=== PATIENT | female | born 1995 | race Caucasian/White ===

== ENCOUNTER 2017-11-23 08:10 | Day surgery (SDC) | payer OTHER ==
--- NOTE | 2017-11-23 08:26 | ED ---
Abdominal Pain/Female - HPI Summary HPI Summary: A 22 y/o F presents to ED with c/o RLQ pain onset this morning. Associated sx: nausea. Denies urinary sx, bowel changes. Aggravating factors: movement. Pt was at baseline yesterday. [facility]: three weeks ago. PMHxL fibromyalgia. No daily meds. - History of Current Complaint Chief Complaint: EDAbdPain Stated Complaint: ABD PAIN Time Seen by Provider: 11/23/17 08:24 Hx Obtained From: Patient Onset/Duration: Sudden Onset, Lasting Hours, Still Present Timing: Constant Severity Currently: Severe Pain Intensity: 10 Pain Scale Used: 0-10 Numeric Location: Discrete At: RLQ Character: Sharp Aggravating Factor(s): Movement Associated Signs and Symptoms: Positive: Nausea. Negative: Constipation, Blood in Stool, Urinary Symptoms, Diarrhea Allergies/Adverse Reactions: Allergies Allergy/AdvReac Type Severity Reaction Status Date / Time nickel Allergy Rash Verified 11/23/17 11:03 Home Medications: Home Medications NK [No Home Medications Reported] 11/23/17 [History Confirmed 11/23/17] PMH/Surg Hx/FS Hx/Imm Hx Previously Healthy: Yes Sensory History: Denies: Hx Deafness Opthamlomology History: Denies: Hx Legally Blind EENT History: Denies: Hx Deafness Infectious Disease History: No Infectious Disease History: Denies: Traveled Outside the [place] in Last 30 Days - Family History Known Family History: Negative: Cardiac Disease, Hypertension, Diabetes - Social History Occupation: Student Lives: Dormitory/Roommates Review of Systems Negative: Fever Positive: Abdominal Pain, Nausea. Negative: Diarrhea Negative: dysuria, hematuria All Other Systems Reviewed And Are Negative: Yes Physical Exam - Summary Physical Exam Summary: Appearance: The patient is well-nourished in no acute distress and in no acute pain. Skin: The skin is warm and dry and skin color reflects adequate perfusion. HEENT: The head is normocephalic and atraumatic. The pupils are equal and reactive. The conjunctivae are clear and without drainage. Nares are patent and without drainage. Mouth reveals moist mucous membranes and the throat is without erythema and exudate. The external ears are intact. The ear canals are patent and without drainage. The tympanic membranes are intact. Neck: the neck is supple with full range of motion and non-tender. There are no carotid bruits. There is no neck vein distension. Respiratory: Chest is non-tender. Lungs are clear to auscultation and breath sounds are symmetrical and equal. Cardiovascular: Heart is regular rate and rhythm. There is no murmur or rub auscultated. There is no peripheral edema and pulses are symmetrical and equal. Abdomen: The abdomen is soft. Pt is tenderly diffuse, worse at McBurney's point. Mild rebound. There are normal bowel sounds heard in all four quadrants and there is no organomegaly palpated. Musculoskeletal: There is no back tenderness noted. Extremities are non-tender with full range of motion. There is good capillary refill. There is no peripheral edema or calf tenderness elicited. Neurological: Patient is alert and oriented to person, place and time. The patient has symmetrical motor strength in all four extremities. Cranial nerves are grossly intact. Deep tendon reflexes are symmetrical and equal in all four extremities. Psychiatric: The patient has an appropriate affect and does not exhibit any anxiety or depression. Triage Information Reviewed: Yes Vital Signs On Initial Exam: Initial Vitals Temp Pulse Resp BP Pulse Ox 98.2 F 62 18 129/90 97 11/23/17 08:13 11/23/17 08:13 11/23/17 08:13 11/23/17 08:13 11/23/17 08:13 Vital Signs Reviewed: Yes Diagnostics - Vital Signs Vital Signs Temp Pulse Resp BP Pulse Ox 11/23/17 08:13 98.2 F 62 18 129/90 97 - Laboratory Result Diagrams: 11/23/17 08:48 11/23/17 08:48 Lab Statement: Any lab studies that have been ordered have been reviewed, and results considered in the medical decision making process. - Ultrasound No standard instances Ultrasound Interpretation: Positive (See Comments) - Appendix U/S IMPRESSION: # . The constellation of findings in the appropriate clinical context is consistent with early appendicitis. Correlate with clinical assessment and consider surgical consultation and potentially contrast-enhanced CT for further assessment if deemed appropriate. #. Results discussed with Dr. Graves 2017 9:27 AM EDT ED provider has reviewed this report. Ultrasound Interpretation Completed By: Radiologist Re-Evaluation - Re-Evaluation 1 Re-Evaluation Time: 09:36 Change: Unchanged Comment: Discussing US reports and plans for Dr. Choe, surgery to see pt in ED. Abdominal Pain Fem Course/Dx - Course Course Of Treatment: Ms. Gandhi presented with one day history of right lower quadrant pain and nausea. She was afebrile and her labs are within normal limits however an ultrasound of her right lower quadrant was interpreted as acute appendicitis by Dr. Paniagua. Dr. Ponce was contacted, evaluated her and took her to the operating room. - Diagnoses Provider Diagnoses: Appendicitis - Provider Notifications Discussed Care Of Patient With: Dimitri Paniagua - Radiology Time Discussed With Above Provider: 09:26 Instructed by Provider To: Other - Pt has acute appendicitis Discharge - Sign-Out/Discharge Documenting (check all that apply): Patient Departure - ADM - OR All imaging exams completed and their final reports reviewed: Yes - Discharge Plan Condition: Stable Disposition: ADMITTED TO [facility] - Billing Disposition and Condition Condition: STABLE Disposition: Admitted to [facility] - Attestation Statements Document Initiated by Scribe: Yes Documenting Scribe: Gena Tamayo Provider For Whom Scribe is Documenting (Include Credential): Dr. Moe Graves MD Scribe Attestation: Gena Wayne scribed for Dr. Moe Graves MD on 11/23/17 at 1142. Scribe Documentation Reviewed: Yes Provider Attestation: The documentation as recorded by the Gena gutiérrez accurately reflects the service I personally performed and the decisions made by , Dr. Moe Graves MD Consult Consult: At 0930: consult with Dr. Choe, surgery MD will see pt in ED
[2017-11-23 09:05] LABS: ABS Basophils 0.1 10^3/ul (0-0.2); ABS Eosinophils 0.2 10^3/ul (0-0.6); ABS Lymphocytes 1.8 10^3/ul (1.0-4.8); ABS Monocytes 0.5 10^3/ul (0-0.8); ABS Neutrophils 3.1 10^3/ul (1.5-7.7); ABS Nucleated RBC 0 10^3/ul; Eosinophil % 3.9 % (0-6); Hematocrit 40 % (35-47); Hemoglobin 13.8 g/dl (12.0-16.0); Lymphocyte % 32.5 % (25-47); Mean Corpuscular HGB Conc 34 g/dl (31-36); Mean Corpuscular Hemoglobin 34 pg (27-31); Mean Corpuscular Volume 100 fL (80-97); Mean Platelet Volume 8.5 um3 (7.4-10.4); Nucleated Red Blood Cells % 0.2; Platelet Count 217 10^3/ul (150-450); Red Blood Count 4.06 10^6/ul (4.00-5.40); Red Cell Distribution Width 12 % (10.5-15); White Blood Count 5.7 10^3/ul (3.5-10.8)
--- NOTE | 2017-11-23 09:31 | RAD ---
INDICATION: RIGHT lower quadrant pain since this morning. COMPARISON: No relevant prior exams available on the [facility] PACS for comparison. TECHNIQUE: Ultrasound of the right lower quadrant. REPORT: Blind-ending tubular structure with gut wall signature is identified at the RIGHT lower quadrant corresponding with the region of pain consistent with the appendix. The appendix measures up to 8 mm maximum diameter with upper normal 3 mm wall thickness. No echogenic shadowing element evident to indicate presence of an appendicolith however the base of the appendix is not definitively visualized limiting assessment. Small volume of pericholecystic fluid present. Negative for gross hyperemia on Doppler. IMPRESSION: #. The constellation of findings in the appropriate clinical context is consistent with early appendicitis. Correlate with clinical assessment and consider surgical consultation and potentially contrast-enhanced CT for further assessment if deemed appropriate. #. Results discussed with Dr. Graves 11/23/2017 9:27 AM EDT
[2017-11-23 09:42] LABS: Urine Appearance Clear; Urine Blood Negative (Negative); Urine Color Straw; Urine Ketones Negative (Negative); Urine Protein Negative (Negative); Urine Specific Gravity 1.004 (1.010-1.030); Urine Urobilinogen Negative (Negative)
--- NOTE | 2017-11-23 13:04 | CONS ---
CC: Dr. Lara * SURGICAL CONSULT NOTE: DATE OF CONSULT: 11/23/17 ATTENDING SURGEON: Dr. Ramón Choe. (DICTATED BY ELIZABETH JOAQUIN) CHIEF COMPLAINT: Right lower quadrant abdominal pain. HISTORY OF PRESENT ILLNESS: This is a 22-year-old female with a history of fibromyalgia, who awoke per her normal routine this morning and noted some right lower quadrant abdominal pain. This quickly became "excruciating" such that she was unable to get out of bed without assistance and felt that she needed to come to the emergency department. She states that the pain has remained in the right lower quadrant and persists to the present time. She has not received any analgesics. She states that the bumps along the road on the way to the hospital did increase her pain. She felt better curled up, though at present time is lying flat on the ED stretcher. She states the pain soon after onset was 10/10 and at present is 8/10. She does have some associated nausea, but thus far has not vomited. No lower GI symptoms. She had a normal bowel movement yesterday. No suspect food ingestion or sick contacts. No recent travel history. No prior history of similar symptoms. She has not had any prior abdominal surgeries. PAST MEDICAL HISTORY: Fibromyalgia. She has seen Dr. Lara locally for evaluation, which was apparently unrevealing. She states that most of the pain she experiences from the fibromyalgia is musculoskeletal and much different than her current presentation. PAST SURGICAL HISTORY: Her only previous surgery is wisdom teeth extraction. MEDICATIONS: Current medications: None. She does take some vitamin C supplement but nothing that sounds significant. ALLERGIES: Medication allergies: None (she does have local contact irritation from [employer]). FAMILY HISTORY: Negative for anesthesia problems, bleeding, or clotting disorders. SOCIAL HISTORY: The patient lives in a house with a number of other students as well as her boyfriend. 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 She drinks less than or equal to 1 drink per week. She smokes marijuana approximately 4 to 6 times a day (in part because of improvement in her fibromyalgia symptoms). She denies any other recreational drug use. REVIEW OF SYSTEMS: General: No recent constitutional symptoms or acute illnesses other than described in the HPI. HEENT: No sore throat, though has had some recent sick contacts with housemates who had strep. Cardiovascular: No history of chest pain, palpitations, or heart murmur. Respiratory: No history of asthma, chronic cough, or shortness of breath. GI: As above per HPI. No additions. : No dysuria, increased frequency, or hematuria. COLLEGE DIRECTOR: Last menstrual period 3 weeks ago. Her hCG is negative. Endocrine: No diabetes or thyroid dysfunction. Remainder of her review of systems is negative. PHYSICAL EXAMINATION: Height 5 feet 4 inches, weight 130 pounds. Temperature 99.4, blood pressure 109/66, pulse 59, respirations 18, room air saturation 98% . General: Well-nourished, well-developed female in no acute distress. She actually appears fairly comfortable lying supine on the stretcher. Skin: Warm and dry. No suspicious rashes or lesions. HEENT: Pupils are equal, round, and reactive. EOMs intact. No conjunctival pallor. Oropharynx: Teeth in good repair. No intraoral lesions. Neck: No lymphadenopathy, thyromegaly, or masses. Heart: Regular rate and rhythm. No murmur noted. Lungs: Clear to auscultation. No wheezes. Breasts: Not examined. Abdomen: Flat, nondistended. Bowel sounds present. Soft with diffuse tenderness, which is maximal at McBurney's point, where there is also some mild guarding and mild rebound. There is also some mild referred tenderness but no other peritoneal signs. No palpable masses. No palpable inguinal hernias. Genitalia and Rectal : Not done. Extremities: No edema. Neurological: Grossly intact. DIAGNOSTIC STUDIES/LAB DATA: Laboratory: Of note, white blood cell count 5700, hemoglobin 13.8. Her chemistries including CRP are all normal. Beta-hCG is negative. Urinalysis is negative. An ultrasound of the right lower quadrant was performed and read as showing an 8 -mm diameter appendix with up to 3-mm wall thickening with an apparent small amount of free fluid, possibly consistent with acute appendicitis. IMPRESSION: Possible early appendicitis. PLAN/RECOMMENDATIONS: The patient's exam to be confirmed by Dr. Choe, at which point, a decision would be made either in the direction of additional imaging and/or operative intervention, i.e., laparoscopic appendectomy. DAI WHITTINGTON, ELIZABETH [id number]/[facility] #: [id number] ELY
[2017-11-23] MEDS ORDERED: Lidocaine 2% PF * 5 ML VIAL ONE (13:30)
[2017-11-23] MEDS ORDERED: fentaNYL* 50 MCG/ML 2 ML VIAL (100 MCG VIAL) ONE ×2 (13:30→15:51)
[2017-11-23] MEDS ORDERED: Ondansetron INJ* 2 MG/ML VIAL ONE (13:30)
[2017-11-23] MEDS ORDERED: Midazolam* 1 MG/ML 5 ML VIAL (5 MG) ONE (13:30)
[2017-11-23] MEDS ORDERED: Propofol* 10 MG/ML 20 ML BTL IV PUSH ONE (13:30)
[2017-11-23] MEDS ORDERED: Dexamethasone IV* 4 MG/ML 1 ML (4 MG) ONE (13:30)
[2017-11-23] MEDS ORDERED: ceFOXitin 2 GM IVPREMIX* 2 GM/50 ML BAG ONE (14:08)
[2017-11-23] MEDS ORDERED: Bupivacaine 0.25% EPI 200,000* 30 ML SDV ONE (14:15)
[2017-11-23] MEDS ORDERED: Cisatracurium* 2 MG/ML MDV 5 ML ONE (14:29)
[2017-11-23] MEDS ORDERED: Neostigmine Methylsulfate* 1 MG/ML 10 ML VIAL (1 mg/ml) ONE (15:11)
[2017-11-23] MEDS ORDERED: Glycopyrrolate IV* 0.2 MG/ML 1 ML VIAL ONE (15:11)
[2017-11-23] MEDS ORDERED: Naloxone* 0.4 MG/ML 1 ML VIAL IV PRN (15:41)
[2017-11-23] MEDS ORDERED: Ondansetron INJ* 2 MG/ML VIAL IV PRN (15:41)
[2017-11-23] MEDS ORDERED: fentaNYL* 50 MCG/ML 2 ML VIAL (100 MCG VIAL) IV PRN (15:41)
[2017-11-23 17:37] VITALS: BP 106/78
--- NOTE | 2017-11-24 05:31 | OP ---
CC: [facility] * DATE OF OPERATION: 11/23/17 - SDS DATE OF : 97 SURGEON: Ramón Choe MD RECTIFYING ATTENDANT: None. ANESTHESIOLOGIST: Dr. Obrien ANESTHESIA: General anesthetic, local infiltration PRE-OP DIAGNOSIS: Appendicitis. POST-OP DIAGNOSIS: Hemorrhagic right ovarian cyst, possible early appendicitis. OPERATIVE PROCEDURE: Laparoscopy with appendectomy. DESCRIPTION OF PROCEDURE: The patient was supine on the operative table. After adequate general anesthetic, compression stockings, Nathan Hugger warmer, and intravenous antibiotics, the abdomen was prepped with antiseptic, draped in a sterile fashion. Local infiltrative anesthesia was administered, 1% lidocaine with epinephrine. A small umbilical incision was created. A blunt port cannula was placed. Insufflation was carried out with carbon dioxide. Additional cannulae, 5 mm left suprapubic and left lower quadrant were placed through small stab wounds under direct vision. Inspection revealed some free blood in the pelvis may be an estimated 30 mL. This was suctioned out and irrigated and cleaned up and there appeared to be a ruptured right ovarian hemorrhagic cyst. Picture was taken of this. The appendix was visualized. The distal end appeared a little injected or little congested, although there was definitely no suppurative change. We decided that appendectomy would be carried out as well. The mesoappendix was divided with a schreiber load of the Endo MICHELLE stapler, the base of the appendix at the cecum with a load of the Endo MICHELLE stapler. Appendix was brought out through the 12-mm port without difficulty. The operative field was in good condition. There was no additional bleeding and cannulae were removed. Umbilical fascia was closed with 0 Vicryl, skin with 5-0 Vicryl followed by Steri-Strips. She tolerated the procedure well, was awakened, extubated, and brought to Recovery in good condition. No complications. No drains. Pathologic specimen was appendix. Sponge and instrument counts correct. Estimated blood loss virtually nil from the surgery and estimated 30 mL in the pelvis. [id number]/[facility] #: [id number] [facility]
== END 2017-11-23 09:34 | disposition home or self-care (01) ==
LOC: ED 08:10 → OR 09:34
PROVIDERS: ATTEND Surgery
DX: K35.80 Unspecified acute appendicitis (principal); N83.201 Unspecified ovarian cyst, right side; R10.31 Right lower quadrant pain; R11.0 Nausea; M79.7 Fibromyalgia; F41.9 Anxiety disorder, unspecified
CPT/HCPCS: 36415; 76705; 80053; 81003; 83605; 83690; 84702; 85025; 86140; 88304; 99283; C1776; J0694; J1100; J2250; J2405; J2704; J2710; J3010